=== PATIENT | male | born 1985 | race Caucasian/White ===

== ENCOUNTER 2017-04-08 19:17 | Emergency (ER) | payer MEDICARE, MEDICAID ==
[~2017-04-08] VITALS: Ht 180.3 cm; Wt 136.1 kg
[~2017-04-08 19:17] MED LIST: BENZTROPINE1 MG PO; CELEXA20 M1 PO; CLONIDINE 0.2M0.2 MG PO; FLEXERIL10 MG PO; FLONASE 50 MCG16 GM; GABAPENTIN300 MG PO; HALDOL 1MG. TABL1 MG PO; IBUPROFEN800 MG PO; KAPIDEX60 MG PO; KEPPRA 500 MG500 MG PO; LINZESS145 MCG PO; LIPITOR20 M1 PO; MELATONIN1 MG PO; METFORMIN1000 MG PO; NEXIUM40 MG PO; PRINIVIL10 M1 PO; REQUIP 1 MG TABL1 MG PO; SYMBICORT1 AE1 IH; TOPAMAX100 MG PO; TRAZODONE100 MG PO; VENTOLIN H0.09 MG/AC IH; VISTARIL25 MG PO; VOLTAREN50 MG PO
[2017-04-08] MEDS ORDERED: [UNRECOGNIZED DRUG - OTHER] PO (19:31)
--- OUTSIDE RECORDS SUMMARY | 2017-04-08 19:37 | External Medical Summary Rpt ---
Author Author [facility] Organization [facility] Address Unknown Phone Unavailable Care Team Providers Care Controls Designer Name Role Phone PHY, LISTED PCP Unavailable Encounter [facility] [id number] Date(s): 07/31/16 - 07/31/[address] [facility] [address] [address]- Discharge Diagnosis: Chest pain Discharge Diagnosis: Acute bronchitis Discharge Diagnosis: Elevated BP Discharge Disposition: OP Self Care or Home Attending Physician: PURA GALVAN MD Admitting Physician: PURA GALVAN MD Referring Physician: PURA GALVAN MD Reason for Visit ACUTE BRONCHITIS, UNSPECIFIED Vital Signs Most recent 1 2 3 to oldest [Reference Range]: Temperature Oral (07/31/16 Oral Source 10:00 PM) (07/31/16 5:06 PM) Temperature Fahrenheit Fahrenheit Mode (07/31/16 10:00 (07/31/16 5:06 PM) PM) Temperature, 97 Deg F (07/31/16 96.8 Deg F Fahrenheit 10:00 PM) (07/31/16 5:06 PM) [96.8-99.7 Deg F] Clinical 36.1 Deg C 36 Deg C Temperature, (07/31/16 10:00 (07/31/16 5:06 PM) C PM) Peripheral 99 bpm Pulse Rate (07/31/16 5:06 PM) [60-100 bpm] Heart Rate 84 bpm (07/31/16 84 bpm Monitored 10:00 PM) (07/31/16 9:00 PM) [60-100 bpm] Respiratory 24 Breaths/Min 24 Breaths/Min 24 Breaths/Min Rate [14-20 *HI*(07/31/16 *HI* *HI* Breaths/Min] 10:00 PM) (07/31/16 9:00 PM) (07/31/16 5:06 PM) Blood 146/75 mmHg 146/82 mmHg Pressure *HI*(07/31/16 *HI* [90-140/60-9 10:00 PM) (07/31/16 5:06 PM) 0 mmHg] Oxygen 98 % (07/31/16 96 % Saturation 10:00 PM) (07/31/16 5:06 PM) [94-100 %] Oxygen Room air (07/31/16 Room air Therapy Mode 10:00 PM) (07/31/16 5:06 PM) Problem List Condition Effective Status Health Informant Dates Status Asthma(Confi Active rmed) Bipolar(Conf Active irmed) GERD - Active Gastro-esoph ageal reflux disease(Conf irmed) Migraine(Con Active firmed) Seizure(Conf Active irmed) Tourette's Active syndrome(Con firmed) Allergies, Adverse Reactions, Alerts Substance Reaction Severity Status Lortab n/v Active Medications albuterol (Proventil HFA 90 mcg/inh inhalation aerosol)2 Puff, Inhalation, Four Times A Day, Refills: 0Ordering provider: DILEEP ROBB PA azithromycin (Azithromycin 5 Day Dose Pack 250 mg oral tablet) See Instructions, as directed on package labeling, Refills: 0Ordering provider: DILEEP ROBB PA Results GENERAL CHEMISTRY Most recent 1 2 to oldest [Reference Range]: Sodium Level 141 mmol/L [136-146 (07/31/16 5:37 PM) mmol/L] Potassium 4.1 mmol/L Level (07/31/16 5:37 PM) [3.5-5.1 mmol/L] Chloride 110 mmol/L Level (07/31/16 5:37 PM) [102-112 mmol/L] Carbon 18 mmol/L Dioxide *LOW* Level [21-32 (07/31/16 5:37 PM) mmol/L] Anion Gap 17 [9-20] (07/31/16 5:37 PM) Glucose 180 mg/dL Level *HI* [74-106 (07/31/16 5:37 PM) mg/dL] Blood Urea 5 mg/dL Nitrogen *LOW* [7-22 mg/dL] (07/31/16 5:37 PM) Creatinine 0.90 mg/dL Level (07/31/16 5:37 PM) [0.70-1.30 mg/dL] eGFR 120 mL/min/1.73m2 [>=60 (07/31/16 5:37 PM) mL/min/1.73m 2] eGFR 99 mL/min/1.73m2 NonAfrican (07/31/16 5:37 PM) [>=60 mL/min/1.73m 2] Bun/Creatini 5.6 ne *LOW* [8.0-20.0] (07/31/16 5:37 PM) Calcium 9.0 mg/dL Level (07/31/16 5:37 PM) [8.5-10.1 mg/dL] CARDIAC SPECIFIC MARKERS Most recent 1 2 to oldest [Reference Range]: Troponin I <0.015 ng/mL <0.015 ng/mL Ultra (07/31/16 9:14 PM) (07/31/16 5:37 PM) [0.015-0.045 ng/mL] HEMATOLOGY Most recent 1 2 to oldest [Reference Range]: WBC [4.2-9.1 11.9 K/uL K/uL] *HI* (07/31/16 5:37 PM) RBC 4.90 Million/uL [4.63-6.08 (07/31/16 5:37 PM) Million/uL] Hgb 13.5 g/dL [13.7-17.5 *LOW* g/dL] (07/31/16 5:37 PM) Hct 41.2 % [40.1-51.0 (07/31/16 5:37 PM) %] MCV 84.1 fL [79.0-94.8 (07/31/16 5:37 PM) fL] MCH 27.6 pg [25.6-32.2 (07/31/16 5:37 PM) pg] MCHC 32.8 Gram/dL [32.2-36.5 (07/31/16 5:37 PM) Gram/dL] Platelet 312 K/uL Count (07/31/16 5:37 PM) [163-369 K/uL] MPV 9.3 fL [9.4-12.4 *LOW* fL] (07/31/16 5:37 PM) RDW 14.9 % [11.6-14.4 *HI* %] (07/31/16 5:37 PM) Neut % 43.4 % [34.0-71.0 (07/31/16 5:37 PM) %] Neut # 5.19 K/uL [1.56-6.13 (07/31/16 5:37 PM) K/uL] Lymph % 45.6 % [19.3-53.1 (07/31/16 5:37 PM) %] Lymph # 5.44 x10(3)/uL [1.00-3.90 *HI* x10(3)/uL] (07/31/16 5:37 PM) [place] % 8.8 % [3.0-9.0 %] (07/31/16 5:37 PM) [place] # 1.05 K/uL [0.16-1.00 *HI* K/uL] (07/31/16 5:37 PM) Eos % 1.2 % [0.0-7.0 %] (07/31/16 5:37 PM) Eos # 0.14 x10(3)/uL [0.00-0.80 (07/31/16 5:37 PM) x10(3)/uL] Baso % 0.6 % [0.0-1.5 %] (07/31/16 5:37 PM) Baso # 0.07 x10(3)/uL [0.00-0.20 (07/31/16 5:37 PM) x10(3)/uL] Slide Review No (07/31/16 5:37 PM) IG# 0.05 x10(3)/uL [0.00-0.05 (07/31/16 5:37 PM) x10(3)/uL] IG% 0.40 % [0.00-0.60 (07/31/16 5:37 PM) %] COAGULATION Most recent 1 2 to oldest [Reference Range]: D Dimer see comment 1 Quant *NA* [0.00-0.58] (07/31/16 9:14 PM) 1Result Comment: Patient Result: 0.20 mg/L Immunizations No data available for this section Procedures No data available for this section Social History Social History Response Type Tobacco Years of Use: 13. Packs/Tins Daily: 1.5. Smoking Status Current every day smoker Assessment and Plan No data available for this section Hospital Discharge Instructions Patient EducationAcute Bronchitis Chest Wall Pain Hypertension Nonspecific Chest Pain
--- OUTSIDE RECORDS SUMMARY | 2017-04-08 19:37 | External Medical Summary Rpt ---
Author Author [facility] Organization [facility] Address Unknown Phone Unavailable Care Team Providers Care Lens Marker Name Role Phone PHY, LISTED PCP Unavailable Encounter [facility] [id number] Date(s): 07/31/16 - 07/31/16 [facility] [address] [place] [address]- [phone] Discharge Diagnosis: Chest pain Discharge Diagnosis: Acute [...] x10(3)/uL [1.00-3.90 *HI* x10(3)/uL] (07/31/16 5:37 PM) [place] % 8.8 % [3.0-9.0 %] (07/31/16 5:37 PM) [place] # 1.05 K/uL [0.16-1.00 *HI* K/uL] (07/31/16 [...]
--- OUTSIDE RECORDS SUMMARY | 2017-04-08 19:38 | External Medical Summary Rpt | CCD ---
Author Author [facility] Organization [facility] Address Unknown Phone Unavailable Purpose Continuity of Care Document - through 2016
--- OUTSIDE RECORDS SUMMARY | 2017-04-08 19:38 | External Medical Summary Rpt | CCD ---
Demographics Preferred Language Central African Marital Status Unknown Spiritism Affiliation Unknown Race Unknown Ethnic Group Unknown Author Author , [facility] Address Unknown Phone Immunization No patient found.
--- OUTSIDE RECORDS SUMMARY | 2017-04-08 19:38 | External Medical Summary Rpt | CCD ---
Author Author , [facility] Organization [facility] Address Unknown Phone [email or web address] Purpose Continuity of Care Document - 10-19-2016 through 2016 Problems Code Diagnosis DOS Provider Status E78.00 PURE 03-10-2017 HYPERCHOLES TEROLEMIA, UNSPECIFIED F17.210 NICOTINE 03-10-2017 DEPENDENCE, CIGARETTES, UNCOMPLICAT ED F20.9 SCHIZOPHREN 03-10-2017 IA, UNSPECIFIED F31.9 BIPOLAR 03-10-2017 DISORDER, UNSPECIFIED F41.9 ANXIETY 03-10-2017 DISORDER, UNSPECIFIED G47.00 INSOMNIA, 03-10-2017 UNSPECIFIED I10 ESSENTIAL 03-10-2017 (PRIMARY) HYPERTENSIO N J18.9 PNEUMONIA, 03-10-2017 UNSPECIFIED ORGANISM J20.9 ACUTE 03-10-2017 BRONCHITIS, UNSPECIFIED K21.9 GASTRO-ESOP 03-10-2017 HAGEAL REFLUX DISEASE WITHOUT ESOPHAGITIS R56.9 UNSPECIFIED 03-10-2017 CONVULSIONS Z79.899 OTHER LONG 03-10-2017 TERM (CURRENT) DRUG THERAPY Z88.5 ALLERGY 03-10-2017 STATUS TO NARCOTIC AGENT STATUS F95.2 TOURETTE'S 10-19-2016 DISORDER L55.0 SUNBURN OF 10-19-2016 FIRST DEGREE L55.1 SUNBURN OF 10-19-2016 SECOND DEGREE Z88.6 ALLERGY 10-19-2016 STATUS TO ANALGESIC AGENT STATUS
--- OUTSIDE RECORDS SUMMARY | 2017-04-08 19:38 | External Medical Summary Rpt | CCD ---
Demographics Preferred Language Niuean Marital Status Unknown Religion Affiliation Unknown Race Unknown Ethnic Group Unknown Author Author , MISSY LOUIS Address Unknown Phone Immunization No patient found.
--- OUTSIDE RECORDS SUMMARY | 2017-04-08 19:38 | External Medical Summary Rpt ---
Author Author [facility] Cunha, [employer] Organization [employer] Address Unknown Phone Unavailable
--- OUTSIDE RECORDS SUMMARY | 2017-04-08 19:38 | External Medical Summary Rpt | CCD ---
Author Author , [facility] Organization [facility] Address Unknown Phone [email or web address] Purpose Continuity of Care Document - 10-19-2016 [...]
[2017-04-08 19:55] LABS: HEMOGLOBIN 13.3 g/dL (14.1-18.0); LYMPH # 4.7 K/mm3 (0.7-4.5); LYMPH % 42.8 % (10-50)
[2017-04-08 20:16] LABS: BUN 4 mg/dL (7-18)
--- NOTE | 2017-04-08 20:16 | Emergency Room Report ---
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 N Clinical Suspician of Infection? N Mental Status: 1 - Regular (Normal Baseline) Sepsis Risk:Low Sepsis Risk Have you (or family members/close friends) recently traveled outside the [place]? N If Yes, where/when: Have you had exposure to infectious disease within the past month? N TB? Other? Specify: Source patient, RN notes reviewed, old records Exam Limitations no limitations Comment wm who reports lt sided rib pain worse with deep insp over the last week but no hemoptysis or prod cough - no rash or trauma Cardiac Chest Pain Chest pain indicative of cardiac No Timing/Duration this evening Severity moderate ALLERGIES Coded Allergies: Mushroom (From MUSHROOMS (FOOD/DRUG)) (I-HIVES 05/31/16) acetaminophen (From LORTAB) (NA-NAUSEA/VOMITING 05/31/16) hydrocodone (From LORTAB) (NA-NAUSEA/VOMITING 05/31/16) mushroom (From MUSHROOMS (FOOD/DRUG)) (I-HIVES 05/31/16) Home Medications Reported Medications Guaifenesin (Mucinex) 100 MG PO BID BENZTROPINE MESYLATE (Benztropine 1MG Tab) 1 MG PO BID Citalopram Hydrobromide (Celexa) 20 MG PO DAILY Clonidine Hydrochloride (Clonidine 0.2MG Tab) 0.2 MG PO DAILY Cyclobenzaprine Hcl (Flexeril) 10 MG PO BID Dexlansoprazole (Dexilant) 60 MG PO DAILY Fluticasone Propionate (Flonase 50 Mcg Nasal [place]) 2 SPRAY NA DAILY Gabapentin (Gabapentin 300MG) 300 MG PO TID Haloperidol (Haldol) 10 MG PO BID Ibuprofen (Ibuprofen 800MG) 800 MG PO PRN PRN PAIN Levetiracetam (Keppra 500 Mg Tablet) 500 MG PO BID Linaclotide (Linzess 145MCG) 145 MCG PO PRN PRN . Atorvastatin Calcium (Lipitor) 10 MG PO DAILY Esomeprazole Magnesium (Nexium 40MG Cap) 40 MG PO DAILY Melatonin 5 MG PO DAILY METFORMIN HCL (Metformin) 1,000 MG PO BID Lisinopril (Prinivil 10MG) 10 MG PO DAILY ROPINIROLE HCL (Requip 1 Mg) 1 MG PO DAILY BUDESONIDE/FORMOTEROL FUMARATE (Symbicort 160-4.5 Mcg Inhaler) 2 PUFF IH BID Topiramate (Topamax) 200 MG PO DAILY Trazodone Hcl (Trazodone HCl) 100 MG PO QHS ALBUTEROL (Ventolin Hfa) 1 PUFF IH Q6H6 PRN SHORTNESS OF BREATH Hydroxyzine Pamoate (Vistaril) 25 MG PO QHSP PRN SLEEP Diclofenac Sodium (Voltaren 50mg) 75 MG PO DAILY History Medical History General CAD? No Angina: No CA: No Hypertension? Yes Hyperlipidemia? Yes CHF? No DVT? No PE? No COPD? Yes Asthma? Yes Anemia? No GERD? Yes Gastric ulcers? No GI Bleed? No Hernia? No Thyroid Problems? No Hypothyroidism? No CVA? No Seizures? Yes Diabetes? Yes Insulin Dependent: No Insulin Pump: No Home FSBS? Yes Renal Insuffiency? No End Stage Renal Disease? No UTI? No Stones? No BPH? No GB Disease: No Nephritic Syndrome? No Asplenia? No Hepatitis? No Sickle Cell Disease? No Arthritis? No Migraines? No Cataracts? No Glaucoma? No MRSA? No HIV? No TB? No Anxiety? Yes Depression? No Cancer? No More? No Immunization Hx DT/Tetanus Unknown Surgical Hx Previous Surgery?Y RIGHT SHOULDER DEVIATED SEPTUM Social History Smoking Hx Smoker: Current Every Day Smoker Tobacco: Yes Type Cigarettes Packs/day < 1 Pack Alcohol Alcohol: No Drugs none Review of Systems All Other Systems Reviewed and Negative Constitutional denies fever Eyes denies drainage ENT denies: ear discharge, epistaxis, throat pain. Respiratory see HPI, denies cough, denies shortness of breath, denies wheezing, other Cardiovascular chest pain, denies palpitations, denies syncope Gastrointestinal denies abdominal pain, denies diarrhea, denies vomiting Genitourinary denies: dysuria, frequency, hesitancy, hematuria. Musculoskeletal denies back pain, denies joint pain, denies joint swelling, denies neck pain Skin denies rash Psychiatric/Neurological denies headache, denies seizure Physical Exam Vital Signs Vital Signs Date Time Temp Pulse Resp B/P Pulse O2 O2 Flow FiO2 Ox Delivery Rate 04/08 1920 98.7 90 18 148/93 93 - WBC >12,000 or <4,000 or 10% bands? 2 or more SIRS Criteria Met? B/P:148/93 MAP:111 Creatinine >2.0? UA output<0.5ml/kg/hr for 2 hrs? Platelet count >100,000? Lactate >2.0mmol/1? INR >1.2 or PTT > than 60 sec? Evidence of Organ Dysfunction? Provider documented clinical suspician of infection? N Sepsis Criteria Count: 1 Sepsis Risk: Low Sepsis Risk General Appearance no apparent distress Eye Exam - bilateral eye PERRL, bilateral eye EOMI Ear, Nose, Throat normal ENT inspection Neck supple Respiratory Status No: respiratory distress. Lung Sounds bilateral: lungs clear. 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 No Results/Orders Laboratory Tests 04/08/171939: Sodium 140, Potassium 4.0, Chloride 107, Carbon Dioxide 22, BUN 4 L, Creatinine 0.8, Estimated Creat Clear 258 H, Estimated GFR (MDRD) 113, Glucose 92, Calcium 8.9, Total Bilirubin 0.2, AST 42 H, ALT 71, Alkaline Phosphatase 81, Creatine Kinase 126, CK-MB (CK-2) Rel Index 0.6, CK and CKMB Interp 0.7, Troponin I < 0.02, Total Protein 7.2, Albumin 3.7, Globulin 3.5 H, Albumin/Globulin Ratio 1.1, WBC 11.0 H, RBC 4.98, Hgb 13.3 L, Hct 40.5 L, MCV 81.3 L, RDW 15.5, Plt Count 364, MPV 7.1 L, Gran % 48.4, Gran # 5.3, Lymphocytes % 42.8, Monocytes % 6.6, Eosinophils % 1.7, Basophils % 0.4, Lymphocytes # 4.7 H, Monocytes # 0.7, Eosinophils # 0.2, Basophils # 0.1, PUBS MCHC 32.9, MCH 26.8 L Current Medication Orders Sig/Zaira Start time Last Medication Dose Route Stop Time Status Admin Sodium Chloride 10 ML PRN PRN 04/08 1945 AC IV 04/09 1932 Orders Procedure Date/time Status ELECTROCARDIOGRAM REQUEST 04/08 1932 Active CHEST(2 VIEWS-NOT PORTABLE) 04/08 1932 Active IV SALINE LOCK 04/08 1932 Active CBC WITH AUTO DIFF 04/08 1932 Complete CARDIAC ENZYMES 04/08 1932 Complete CHEM 12 PROFILE 04/08 1932 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 ST/Twave chgs XRAY/CT/US XRAY/CT/US XRAY chest XR interpretation by reviewed by me Xray Results normal/NAD Departure Departure Time of Disposition 2028 Disposition DC Home or Self Care(routine) Clinical Impression Primary Impression: Pleurisy Condition STABLE Referrals Prince Camarillo MD (Family) Patient Instructions DI for Pleurisy Additional Instructions see pcp next week and use meds as directed Discharge Counseling Counseled pt/family regarding diagnosis, test results, medications/RX, follow up needs Prescriptions Current Visit Scripts Azithromycin (Zithromycin (Z-LINA) 250MG Tab) 250 MG PO DAILY #6 TAB TAKE TWO (2) TABLETS ON DAY 1, THEN ONE (1) TABLET DAY #2 THRU #5 ED Critical Care Critical Care No at 2030
[2017-04-08 20:21] LABS: GFR (ESTIMATED) 113 ML/MIN (>60)
[2017-04-08] MEDS ORDERED: ZITHROMAX Z PA250 MG PO (20:30)
[2017-04-08 20:40] VITALS: BP 134/75
--- NOTE | 2017-04-09 18:54 | RADIOLOGY REPORT PS360 ---
CHEST(2 VIEWS-NOT PORTABLE) Ordering physician: Oleg Rojas MD Age: 32 years Male INDICATION: chest symptomsPLEURITIC CP pleuritic chest pain left side low clear. PROCEDURE: CHEST(2 VIEWS-NOT PORTABLE) FINDINGS: No previous studies for comparison. Lungs well expanded and clear with nothing definitely acute. No pneumothorax. No pleural effusion. Heart normal size. Normal pulmonary vascularity. Hilar and mediastinal structures appear satisfactory. Old right clavicle ORIF noted metallic plate applied along superior aspect of the right clavicle, with with 8 screws securing to the clavicle. IMPRESSION ----- Lungs clear. Nothing definitely acute Old ORIF right clavicular fracture
== END 2017-04-08 20:41 | disposition home or self-care (01) ==
LOC: ER 19:17
PROVIDERS: Emergency Medicine
DX: R09.1 Pleurisy (principal); J44.9 Chronic obstructive pulmonary disease, unspecified; E78.5 Hyperlipidemia, unspecified; R56.9 Unspecified convulsions; E11.9 Type 2 diabetes mellitus without complications; Z79.84 Long term (current) use of oral hypoglycemic drugs; Z88.6 Allergy status to analgesic agent; I10 Essential (primary) hypertension; F17.210 Nicotine dependence, cigarettes, uncomplicated